=== PATIENT | male | born 1960 | race Caucasian/White ===

== ENCOUNTER 2019-10-31 08:00 | Emergency (ER) | payer OTHER, SELFPAY ==
--- NOTE | ~2019-10-31 | CT_ITS ---
EXAMINATION: CT abdomen pelvis wo con DATE: 10/31/2019 08:37 INDICATION: Kidney stones TECHNIQUE: Computed tomography (CT) of the abdomen and pelvis was performed without intravenous contr ast. Automated exposure control and iterative reconstruction technique were employed. The dose-length product was 412.60 mGy-cm. COMPARISON: 03/25/2014 FINDINGS: Respiratory motion at the lung bases. Heart size is normal. No pericardial or pleural effusion. Multi ple low-attenuation hepatic cysts, the largest measuring up to 7.0 cm. Spleen, pancreas and bilateral adrenal glands are normal. 10.6 cm left renal cyst. Bilateral nephrolithiasis with 5 stones at the l eft kidney measuring up to 1 mm and 4 stones in the right kidney also measuring up to 3 mm. Mild righ t hydroureteronephrosis proximal to an obstructing 4 mm stone in the mid right ureter. There is mild stranding surrounding the mid right ureter. Bowels including the appendix are normal. Bladder is norm al. Small right and moderate-sized left fat-containing inguinal hernias. No free intraperitoneal gas or fluid. No pathologically enlarged abdominal or pelvic lymphadenopathy. Mild lumbar levocurvature w ith chronic mild right-sided vertebral body height loss at L4. IMPRESSION: 1. Bilateral nephrolithiasis with obstructing 4 mm stone in the mid right ureter and mild right hydro ureteronephrosis. Reviewed, dictated and finalized at location A. RIENCED TRUCK DRIVER IMPRESSION: 1. Bilateral nephrolithiasis with obstructing 4 mm stone in the mid right urete r and mild right hydroureteronephrosis.
[2019-10-31 08:14] VITALS: BP 178/101; PULSE 83; RESP 18; TEMP 36.4; O2SAT 97
--- NOTE | 2019-10-31 08:16 | ED.ABDPAIN ---
HPI - Abdominal Pain General Chief Complaint: Abdominal Pain Stated Complaint: abd pain Time Seen by Provider: 10/31/19 08:17 Source: patient Mode of arrival: ambulatory Limitations: no limitations History of Present Illness HPI narrative: A 59 y/o male presents to the ED with c/o RLQ ABD pain. Pt states he was at work when the pain began at 4:00 AM. Pt tried to go to the bathroom with no relief and then placed a heating pad on the area when he got home from work. His pain is better when laying down. Pt notes that he has a PMHx of kidney stones and his pain feels similar. He reports smoking and occasional alcohol use, but denies dysuria, urinary frequency, N/V/D, constipation, chills, a fever, and a PSHx of ABD surgery. Pertinent past history: kidney stones Onset (ago): hour(s) (4:00 AM) Location: RLQ Related Data Home Medications Medication Instructions Recorded Confirmed pb-jh-XO-vit D-vjyxq-zwe-coQ10 cap PO 10/31/19 [Daily Multivitamin] Allergies Allergy/AdvReac Type Severity Reaction Status Date / Time No Known Allergies Allergy Unverified 10/31/19 08:16 Review of Systems Review of Systems: All systems reviewed & are unremarkable except as noted in HPI and below Constitutional: Constitutional: Denies chills and Denies fever(s) Gastrointestinal: Gastrointestinal: Reports abdominal pain (RLQ), Denies constipation, Denies diarrhea, Denies nausea and Denies vomiting Genitourinary: Genitourinary: Denies dysuria and Denies urinary frequency PMFSH Past Medical History Medical History Arthritis BCC (basal cell carcinoma of skin) Finger fracture Kidney stone Surgical History Surgical History H/O basal cell carcinoma excision History of tonsillectomy Social History Social History (Updated 10/31/19 @ 08:37 by Tammi Stahl) Smoking status: Current every day smoker Alcohol intake: current Gender identity (if verbalized by the patient): Male Comments PCP: Dr. Gramajo Exam Narrative: Exam Narrative: General appearance: Well-developed, well-nourished Skin: Normal color Head: Normocephalic, nontraumatic Eyes: Clear conjunctiva ENT: Oropharynx normal, ears normal, nose normal Neck: Supple, nontender Chest and respiratory: Airway patent, no respiratory distress, no accessory muscle use Heart: Regular rate/rhythm Abdomen: Soft, nontender, no organomegaly, quiet bowel sounds, mild tenderness right flank, no bruises or rash Vascular: Normal peripheral pulses, normal capillary refill. Musculoskeletal: Normal range of motion, nontender back Neurologic: Alert and oriented ?3, CAMP COORDINATOR is normal as tested, no gross motor deficit Course Course Emergency Course: Improved/stable Vital Signs Vital signs: Vital Signs Temperature 36.4 C 10/31/19 08:14 Pulse Rate 83 10/31/19 08:14 Respiratory Rate 18 10/31/19 08:14 Blood Pressure 178/101 H 10/31/19 08:14 Pulse Oximetry 97 10/31/19 08:14 Temperature 36.4 C 10/31/19 08:57 Pulse Rate 82 10/31/19 11:59 Respiratory Rate 18 10/31/19 11:59 Blood Pressure 142/78 H 10/31/19 11:59 Pulse Oximetry 98 10/31/19 11:59 MDM - Abdominal Pain MDM Narrative Medical decision making narrative: Patient presents with abdominal pain, history of kidney stone, ureterolithiasis is my concern. Labs, CT abdomen and pelvis without IV contrast ordered. Further plan to follow Differential Diagnosis Differential diagnosis: Likely abdominal pain, calculus of kidney, constipation, diverticulitis and pancreatitis Lab Data Result diagrams: 10/31/19 08:18 10/31
[2019-10-31] MEDS: KETOROLAC 30 MG/ML VIAL (*BKC) IV PUSH (08:27)
[2019-10-31 08:56] LABS: Basophils Absolute Auto 0.1 K/mm3 (0.0-0.1); Basophils Percent Auto 0.5 % (0.2-1.2); Eosinophils Absolute Auto 0.2 K/mm3 (0-0.3); Eosinophils Percent Auto 1.9 % (0-4.4); Hematocrit 49.1 % (42.0-52.0); Hemoglobin 16.2 g/dL (14.0-18.0); Immature Granulocyte Absolute 0.07 K/mm3 (0.00-0.031); Immature Granulocyte Percent A 0.6 % (0-0.5); Lymphocytes Absolute Auto 2.05 K/mm3 (0.9-3.2); Lymphocytes Percent Auto 16.3 % (18.3-44.2); Mean Corpuscular Volume 94.1 fl (80-100); Mean Platelet Volume 9.4 fl (7.4-10.4); Monocytes Absolute Auto 1.2 K/mm3 (0.1-0.6); Monocytes Percent Auto 9.5 % (2.6-8.5); Neutrophils Percent Auto 71.2 % (45.5-73.1); Platelet Count Result 261 k/mm3 (150-375); Red Blood Count 5.22 M/mm3 (4.6-6.20); Red Cell Distribution Width 12.8 % (11.5-14.5); White Blood Count 12.6 K/mm3 (4.5-10.0)
[2019-10-31 08:57] VITALS: TEMP 36.4
[2019-10-31 09:30] LABS: Add Urine Microscopic? YES; Appearance Urine Clear (Clear); Bilirubin Urine Negative (Negative); Blood Urine 2+ (Negative); Color Urine Straw (Yellow); Glucose Urine UA Negative (Negative); Ketones Urine Negative (Negative); Leukocyte Esterase Ur Trace LEU/UL (Negative); Mucus Urine Rare /lpf; Nitrate Urine Negative (Negative); Protein Urine Negative (Negative); RBC Urine 21-50 /hpf (0-2); Specific Grav Ur 1.013 (1.001-1.035); Squamous Epithelial Cell Urine Rare /hpf (Few); Urobilinogen Urine Negative mg/dL (<2.0)
[2019-10-31 10:08] LABS: Alanine Aminotransferase 27 U/L (4-50); Albumin Level 4.3 g/dL (3.5-5.1); Alkaline Phosphatase 66 U/L (38-126); Aspartate Amino Transferase 25 U/L (17-59); Bilirubin,Total 0.3 mg/dL (0.2-1.3); Blood Urea Nitrogen 18 mg/dL (9-20); Calcium 9.1 mg/dL (8.4-10.2); Carbon Dioxide 28 mmol/L (22-30); Chloride 102 mmol/L (98-107); Estimated CRCL calculation 62 ml/min; Estimated Glomerular Filt Rate 57; Glucose 113 mg/dL (75-110); Lipase 88 U/L (23-300); Potassium 4.3 mmol/L (3.4-5.0); Sodium 138 mmol/L (137-145)
[2019-10-31 10:16] VITALS: BP 146/95; PULSE 68; RESP 20; O2SAT 95
[2019-10-31 11:59] VITALS: BP 142/78; PULSE 82; RESP 18; O2SAT 98
[2019-10-31 13:34] VITALS: BP 159/89; PULSE 78; RESP 16; O2SAT 98
== END 2019-10-31 13:55 | disposition home or self-care (01) ==
PROVIDERS: Emergency Provider Emergency Medicine
DX: N13.2 Hydronephrosis with renal and ureteral calculous obstruction (principal); M19.90 Unspecified osteoarthritis, unspecified site; Z85.828 Personal history of other malignant neoplasm of skin; Z87.442 Personal history of urinary calculi; F17.200 Nicotine dependence, unspecified, uncomplicated
CPT/HCPCS: 36415; 74176; 80053; 81001; 83690; 85025; 96374; 99284; J1885

== ENCOUNTER 2019-11-03 13:17 | Outpatient (CLI) | payer OTHER, SELFPAY ==
--- NOTE | ~2019-11-03 | XR_ITS ---
XR abdomen/kub 1V 11/03/2019 13:44 Indication: Right ureteral stone Procedure: KUB Comparison: CT dated 10/31/2019 Findings: There is a 5 mm calcification overlying the sacrum, compatible with distal ureteral stone. A pattern is nonobstructive. Mild lumbar spondylosis with dextrocurvature. No acute osseous abnormali ty. Impression: 1: No significant change to position a 5 mm distal right ureteral stone overlying the sacrum. Reviewed, dictated and finalized at location A. OR PROJECT LEADER/TEAM LEAD Impression: 1: No significant change to position a 5 mm distal right ureteral stone overlyi ng the sacrum.
== END 2019-11-03 13:18 | disposition home or self-care (01) ==
PROVIDERS: Visit Provider Urology
DX: N20.1 Calculus of ureter (principal)
CPT/HCPCS: 74018

== ENCOUNTER 2019-11-08 11:16 | Outpatient (CLI) | payer OTHER, SELFPAY ==
[2019-11-08 12:17] LABS: Prothrombin Time 12.7 Seconds (11.1-14.7)
[2019-11-08 12:18] LABS: Partial Thromboplastin Time 29.2 SECONDS (22.3-36.8)
== END 2019-11-08 11:17 | disposition home or self-care (01) ==
LOC: ANHSURGERY 11:18
PROVIDERS: Visit Provider Urology
DX: Z01.812 Encounter for preprocedural laboratory examination (principal); N20.0 Calculus of kidney
CPT/HCPCS: 36415; 85610; 85730; 87086

== ENCOUNTER 2019-11-12 00:24 | Day surgery (SDC) | payer OTHER, SELFPAY ==
[2019-11-05 15:58] VITALS: BMI 32.3
[2019-11-12] VITALS (7 sets, daily range): BP systolic 103–140; BP diastolic 75–93; PULSE 54–69; RESP 12–20; TEMP 36.8–37.2; O2SAT 97–100
--- NOTE | ~2019-11-12 | XR_ITS ---
EXAMINATION: XR abdomen/kub 1V DATE: 11/12/2019 07:28 INDICATION: Right ureteral stone. TECHNIQUE: A supine view of the abdomen on 2 radiographs was obtained. COMPARISON: Abdomen radiographs 11/03/2019, CT abdomen and pelvis 10/31/2019 FINDINGS: There are no dilated loops of bowel. There are 5 stones in left kidney measuring up to 4 mm . The right kidney is obscured by bowel. There is a 1 mm stone in right kidney. There is a 5 mm stone in distal right ureter. IMPRESSION: 1. Stones in the kidneys and distal right ureter. Reviewed, dictated and finalized at location A. ARY TEACHER
--- NOTE | 2019-11-12 06:59 | WPDHPUPDATE1 ---
History and Physical Update Update Date/Time: 11/12/19 06:59 History and Physical has been reviewed, including an updated exam of the patient. There are NO changes in the patient's condition. Risks, benefits, and alternatives have been discussed and questions answered. Patient agrees to proceed with procedure.
[2019-11-12] MEDS: LACTATED RINGERS 1,000 ML 30 ML IV CONT (08:15)
--- NOTE | 2019-11-12 09:02 | WPDANESEPPF ---
Anes - Initial Pre Proc Eval Procedure: Operation Date: 11/12/19 09:30 Proposed Procedures p Right Ureteral Extracorporeal Shock Wave Lithotripsy - Casey Javier MD Date/Time: 11/12/19 09:02 Surgeon: Casey Javier MD Pre Op Diagnosis: Kidney Stones Patient Data Age: 59 Gender: M Height: 1.85 m Weight: 108.9 kg Last Vital Signs Temp 37.2 C 11/12/19 08:15 Pulse 69 11/12/19 08:15 Resp 18 11/12/19 08:15 BP 103/75 11/12/19 08:15 Pulse Ox 97 11/12/19 08:15 Allergies Allergy/AdvReac Type Severity Reaction Status Date / Time No Known Allergies Allergy Unverified 11/12/19 08:30 Home Medications Medication Instructions Recorded Confirmed Type hydrocodone-acetaminophen [[place]] 1 tablet PO Q4H PRN #20 tablet 10/31/19 11/12/19 Rx hl-qi-WL-vit A-hmybi-bvp-coQ10 1 cap PO DAILY 10/31/19 11/12/19 History [Daily Multivitamin] ondansetron 4 mg PO Q6H PRN #10 tablet 10/31/19 11/12/19 Rx tamsulosin [Flomax] 0.4 mg PO DAILY #7 cap 10/31/19 11/12/19 Rx Patient hx anesthesia problems: none Family hx anesthesia problems: none PMFSH Past Medical History Medical History (Updated 11/12/19 @ 09:04 by Ed Silveira MD) Arthritis BCC (basal cell carcinoma of skin) Finger fracture Kidney stone Obesity Surgical History Surgical History H/O basal cell carcinoma excision History of tonsillectomy Social History Social History (Updated 10/31/19 @ 08:37 by Tammi Stahl) Smoking status: Current every day smoker Alcohol intake: current Gender identity (if verbalized by the patient): Male Anes - Eval Final PreProcedure Day of Procedure 11/12/19 09:02 Patient weight: obese Heart: regular rate and rhythm Lungs: clear to auscultation and normal air movement Airway: Mallampati scale class II Neurological: alert and oriented Last oral intake: >/= 8 hours ASA classification: II Emergent: no Anesthetic plan: proceed Anesthesia type and monitoring: general LMA Informed Consent: The patient's anesthetic plan and its attendant risks and benefits were discussed with the patient/family/POA. Questions were solicited and answers provided to the satisfaction of the patient/family/POA.
[2019-11-12] MEDS: ceFAZolin 2 GM/D5W 50 ML 2 GM/50 ML BAG IVPB (09:41)
--- NOTE | 2019-11-12 09:58 | PM.PROC ---
Procedure Note - Detailed Date of procedure: 11/12/19 Pre-op diagnosis: Kidney Stones Post-op diagnosis: same Procedure performed: Right ESWL Description of procedure: The patient was brought to the operative suite where he was placed in the supine position on the Dornier lithotripsy table. The focal point of the lithotripter was placed at a 5-6mm right distal ureteral calculus. A total of 3000 shocks were delivered at a power setting of 8. There appeared to be good fragmentation of the stone. The patient tolerated the procedure well and was taken to the recovery room in good condition. Anesthesia: GLMA Surgeon: Casey Javier MD Estimated blood loss (mL): 0 Drains: No Packing: No Pathology: none sent Complications: No immediate complications Condition: stable Disposition: PACU
--- NOTE | 2019-11-12 12:09 | SUR.PHASEII ---
PT DRESSING; AWAITING RIDE. WILL REVIEW INSTRUCTIONS WITH PT AND FAMILY MEMBER.
== END 2019-11-12 12:25 | disposition home or self-care (01) ==
PROVIDERS: Visit Provider Urology
PROC: (CPT 50590; principal; 2019-11-12 09:30)
DX: N20.2 Calculus of kidney with calculus of ureter (principal); Z85.828 Personal history of other malignant neoplasm of skin
CPT/HCPCS: 50590; 74018; J0131; J0690; J1100; J2250; J2405; J2704; J7120

== ENCOUNTER 2019-11-23 11:30 | Outpatient (CLI) | payer OTHER, SELFPAY ==
--- NOTE | ~2019-11-23 | XR_ITS ---
EXAMINATION: XR abdomen/kub 1V INDICATION: Calculus of the ureter TECHNIQUE: Supine views of the abdomen were obtained on 2 radiographs. COMPARISON: 11/12/2019 FINDINGS: The previously described 5 mm right distal ureteral stone is not definitely identified. Phl eboliths are noted in the pelvis. Stable stones of the left kidney measure up to 4 mm. IMPRESSION: 1. Findings consistent with interval treatment of the previously described right distal ureteral ston e. 2. Left nephrolithiasis. Reviewed, dictated and finalized at location A. IMPRESSION: 1. Findings consistent with interval treatment of the previously described righ t distal ureteral stone. 2. Left nephrolithiasis.
== END 2019-11-23 11:31 | disposition home or self-care (01) ==
LOC: ANHIMG 11:34
PROVIDERS: Visit Provider Urology
DX: N20.2 Calculus of kidney with calculus of ureter (principal)
CPT/HCPCS: 74018

== ENCOUNTER 2020-06-15 13:11 | Outpatient (CLI) | payer OTHER, SELFPAY ==
--- NOTE | ~2020-06-15 | XR_ITS ---
XR abdomen/kub 1V DATE: 06/15/2020 13:28 INDICATION: Right ureteral stone TECHNIQUE: AP projection, 2 views COMPARISON: 11/23/2019 KUB 10/31/[address] abdomen pelvis FINDINGS: There are some faint calcific densities overlying both renal silhouette suggesting possible bilateral calcified renal calculi. Noncontrast CT examination would be more definitive for detection of urinary tract calculi. There are nondilated gas containing small bowel is overlying the mid abdomen which may represent mild adynamic ileus. The psoas shadows are intact. No visceromegaly is evident. IMPRESSION: Suspected bilateral nephrolithiasis Reviewed, dictated and finalized at Location A. Reviewed, dictated and finalized at location B.
== END 2020-06-15 13:12 | disposition home or self-care (01) ==
PROVIDERS: PCP Family Medicine; Visit Provider Urology
DX: N20.0 Calculus of kidney (principal)
CPT/HCPCS: 74018

== ENCOUNTER 2023-01-24 01:12 | Day surgery (SDC) | payer OTHER, SELFPAY ==
[2023-01-10 13:34] VITALS: BMI 33.3
--- NOTE | 2023-01-23 17:19 | PM.HPGS ---
History of Present Illness History of Present Illness Consent: Risks, benefits, and alternatives have been discussed and questions answered. Patient agrees to proceed with procedure. Chief complaint: hx colon polyps, family hx colon ca Narrative: Luke Townsend is a 62 year old male Referred for colon cancer screening. He has a family history of colon cancer in a paternal uncle. Review of Systems Review of Systems: All systems reviewed & are unremarkable except as noted in HPI and below PMFSH Past Medical History Medical History Arthritis BCC (basal cell carcinoma of skin) Finger fracture Kidney stone Obesity Surgical History Surgical History H/O basal cell carcinoma excision History of tonsillectomy Social History Social History Smoking packs per day: 0.5 Smoking cigarettes per day: 10.0 Smoking status: Current every day smoker Tobacco type: cigarettes Alcohol intake: current Alcohol use details: occasional Substance use type: does not use Living arrangements: alone Gender identity (if verbalized by the patient): Male Spiritual care concerns: No Meds Home Medications and Allergies Home Medications Medication Instructions Recorded Confirmed Type kiyuhsvs-tfk-NW 200 mcg-vit K 100 1 cap PO DAILY 10/31/19 01/10/23 History mcg-lycop 500 [id number]-mpqeni-P97 capsule (Daily Multivitamin) albuterol sulfate 90 mcg/actuation 2 inh inhalation Q4H PRN Wheezing 01/10/23 01/10/23 History aerosol inhaler ascorbic acid (vitamin C) 1,000 mg 1 g PO DAILY 01/10/23 01/10/23 History tablet cholecalciferol (vitamin D3) 25 25 mcg PO DAILY 01/10/23 01/10/23 History mcg (1,000 unit) chewable tablet (Vitamin D3) vitamin C 45 mg-zinc citrate 3.75 1 tablet PO DAILY 01/10/23 01/10/23 History mg-elderberry 25 mg chewable tablet (Sambucus Elderberry) Allergies Allergy/AdvReac Type Severity Reaction Status Date / Time No Known Allergies Allergy Verified 01/24/23 09:48 Exam Const: General: alert Orientation/consciousness: patient oriented x3 Resp: Auscultation: clear to auscultation bilaterally Cardio: Rhythm: regular rhythm GI: GI Palp: Yes Soft to palpation and No Tenderness to palpation present (GI) Neuro: General: patient oriented x3 Assessment and Plan Assessment and plan (1) Colon cancer screening: Code(s): Z12.11 - Encounter for screening for malignant neoplasm of colon Status: Acute Assessment and Plan: Colonoscopy with possible biopsy or polypectomy or cautery or injection of substances.
[2023-01-24 09:49] VITALS: BP 139/91; PULSE 73; RESP 19; TEMP 36.3; O2SAT 98
--- NOTE | 2023-01-24 09:54 | WPDANESEPPF ---
Anes - Initial Pre Proc Eval Procedure: Operation Date: 01/24/23 11:00 Proposed Procedures p Colonoscopy - Marcelino Moore MD Date/Time: 01/24/23 09:54 Surgeon: Marcelino Moore MD Pre Op Diagnosis: hx colon polyps, family hx colon ca Patient Data Age: 62 Gender: M Height: 1.83 m Weight: 108.4 kg Last Vital Signs Temp 36.3 C L 01/24/23 09:49 Pulse 73 01/24/23 09:49 Resp 19 01/24/23 09:49 BP 139/91 H 01/24/23 09:49 Pulse Ox 98 01/24/23 09:49 O2 Del Method Room Air 01/24/23 09:49 Allergies Allergy/AdvReac Type Severity Reaction Status Date / Time No Known Allergies Allergy Verified 01/24/23 09:48 Home Medications Medication Instructions Recorded Confirmed Type ozuamigs-vsx-LZ 200 mcg-vit K 100 1 cap PO DAILY 10/31/19 01/10/23 History mcg-lycop 500 ayc-nafwwx-L19 capsule (Daily Multivitamin) albuterol sulfate 90 mcg/actuation 2 inh inhalation Q4H PRN Wheezing 01/10/23 01/10/23 History aerosol inhaler ascorbic acid (vitamin C) 1,000 mg 1 g PO DAILY 01/10/23 01/10/23 History tablet cholecalciferol (vitamin D3) 25 25 mcg PO DAILY 01/10/23 01/10/23 History mcg (1,000 unit) chewable tablet (Vitamin D3) vitamin C 45 mg-zinc citrate 3.75 1 tablet PO DAILY 01/10/23 01/10/23 History mg-elderberry 25 mg chewable tablet (Sambucus Elderberry) Patient hx anesthesia problems: none Family hx anesthesia problems: none Results Review: All pre-operative results and documents have been reviewed as part of the pre-operative evaluation. [facility] Past Medical History Medical History (Updated 01/23/23 @ 17:19 by Marcelino Moore MD) Arthritis BCC (basal cell carcinoma of skin) Finger fracture Kidney stone Obesity Surgical History Surgical History H/O basal cell carcinoma excision History of tonsillectomy Social History Social History (Updated 10/31/19 @ 08:37 by Tammi Ling Smoking packs per day: 0.5 Smoking cigarettes per day: 10.0 Smoking status: Current every day smoker Tobacco type: cigarettes Alcohol intake: current Alcohol use details: occasional Substance use type: does not use Living arrangements: alone Gender identity (if verbalized by the patient): Male Spiritual care concerns: No Anes - Eval Final PreProcedure Day of Procedure 01/24/23 09:54 Patient weight: obese Heart: regular rate and rhythm Lungs: clear to auscultation and normal air movement Airway: Mallampati scale class II Neurological: alert and oriented Last oral intake: >/= 8 hours ASA classification: II Emergent: no Anesthetic plan: proceed Anesthesia type and monitoring: general GIVS Results Review: All pre-operative results and documents have been reviewed as part of the pre-operative evaluation. Informed Consent: The patient's anesthetic plan and its attendant risks and benefits were discussed with the patient/family/POA. Questions were solicited and answers provided to the satisfaction of the patient/family/POA.
[2023-01-24] MEDS: LACTATED RINGERS 1,000 ML 150 ML IV CONT (10:00)
[2023-01-24 11:02] VITALS: BP 110/66; PULSE 65; RESP 22; O2SAT 96
[2023-01-24 11:12] VITALS: BP 110/68; PULSE 65; RESP 23; O2SAT 94
[2023-01-24 11:22] VITALS: BP 134/73; PULSE 60; RESP 25; O2SAT 96
== END 2023-01-24 11:35 | disposition home or self-care (01) ==
PROVIDERS: PCP Family Medicine; Visit Provider Internal Medicine Gastroenterology
PROC: 0DJD8ZZ Inspection of Lower Intestinal Tract, Via Natural or Artificial Opening Endoscopic (ICD-10-PCS; CPT 45378; principal; 2023-01-24 11:00)
DX: Z12.11 Encounter for screening for malignant neoplasm of colon (principal); Z86.010 Personal history of colon polyps; Z80.0 Family history of malignant neoplasm of digestive organs; Z79.51 Long term (current) use of inhaled steroids; F17.210 Nicotine dependence, cigarettes, uncomplicated; E66.9 Obesity, unspecified; Z68.32 Body mass index [BMI] 32.0-32.9, adult
CPT/HCPCS: 45378; J2704; J7120